=== PATIENT | female | born 1960 | race Caucasian/White ===

== ENCOUNTER 2016-06-20 19:17 | Emergency (ER) | payer OTHER ==
[~2016-06-20] VITALS: Ht 175.3 cm; Wt 57.0 kg
[~2016-06-20 19:17] MED LIST: IBUP-232 PO; NEUR600T PO; OXYC40TA9 PO; PENI250T59 PO; ROXI15TA9 PO
[2016-06-20 19:34] VITALS: BP 140/64; PULSE 65; RESP 18; TEMP 98; O2SAT 97
[2016-06-20 20:22] VITALS: BP 140/64; PULSE 65; RESP 18; TEMP 98; O2SAT 97
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
[2016-06-20 22:40] LABS: FREE T4 0.94 NG/DL (0.76-1.46)
== END 2016-06-20 22:57 | disposition home or self-care (01) ==
LOC: PHED 19:17 → PHEFT 22:57
DX: M54.2 Cervicalgia (principal); M06.9 Rheumatoid arthritis, unspecified
CPT/HCPCS: 84439; 84443; 99283

== ENCOUNTER 2016-08-22 04:31 | Emergency (ER) | payer SELFPAY ==
[~2016-08-22] VITALS: Ht 172.7 cm; Wt 55.0 kg
[2016-08-22 04:30] VITALS: O2SAT 98
[~2016-08-22 04:31] MED LIST changes: -PENI250T59 PO
[2016-08-22 04:44] VITALS: BP 145/80; PULSE 80; RESP 14; TEMP 97.8; O2SAT 98
[2016-08-22] MEDS ORDERED: SODIUM CHLORIDE 0.9% FLUSH 10 ML FLUSH IVF PRN (04:45)
[2016-08-22] MEDS ORDERED: SODIUM CHLOR 0.9% 1000 ML INJ 1,000 ML IV ONE ×3 (04:45→05:45)
[2016-08-22 04:48] VITALS: O2SAT 98
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
[2016-08-22 05:01] LABS: AUTOMATED NEUTROPHIL # 4.5 TH/MM3 (1.8-7.7); BASOPHIL % 0.3 % (0.0-2.0); EOSINOPHIL # 0.1 TH/MM3 (0-0.4); EOSINOPHIL % 1.4 % (0.0-4.0); HEMATOCRIT 37.7 % (35.0-46.0); HEMO FLAGS DIFF FINAL; LYMPHOCYTE # 1.4 TH/MM3 (1.0-4.8); MEAN CELL VOLUME 85.9 FL (80.0-100.0); MEAN CORPUSCULAR HEMOGLOBIN 28.6 PG (27.0-34.0); MEAN CORPUSCULAR HGB CONC 33.3 % (32.0-36.0); MONO % 3.1 % (0.0-8.0); NEUT % 72.2 % (16.0-70.0); PLATELET COUNT 170 TH/MM3 (150-450); RED BLOOD COUNT 4.39 MIL/MM3 (4.00-5.30); RED CELL DISTRIBUTION WIDTH 14.4 % (11.6-17.2); WHITE BLOOD COUNT 6.3 TH/MM3 (4.0-11.0)
[2016-08-22 05:13] LABS: APTT (PATIENT) 20.6 SEC (24.3-30.1); PROTHROMBIN TIME - PATIENT 11.1 SEC (9.8-11.6)
[2016-08-22 05:20] LABS: ALT (GPT) 81 U/L (10-53); ANION GAP 15 MEQ/L (5-15); AST (GOT) 133 U/L (15-37); BICARBONATE 20.3 MEQ/L (21.0-32.0); BLOOD UREA NITROGEN 21 MG/DL (7-18); CHLORIDE 103 MEQ/L (98-107); GLOMERULAR FILTRATION RATE 37 ML/MIN (>89); SODIUM (NA) 138 MEQ/L (136-145)
[2016-08-22 05:22] LABS: ACETAMINOPHEN LESS THAN 2.0 MCG/ML (10.0-30.0); ALKALINE PHOSPHATASE 93 U/L (45-117); TOTAL BILIRUBIN ADULT 0.2 MG/DL (0.2-1.0)
[2016-08-22 05:59] VITALS: BP 126/75; PULSE 79; RESP 18; O2SAT 100
--- NOTE | 2016-08-22 06:19 | RADRPT ---
EXAM DATE/TIME: 08/22/2016 05:07 [facility] COMPARISON: No previous studies available for comparison. INDICATIONS : Overdose. Shortness of breath. MEDICAL HISTORY : None. SURGICAL HISTORY : None. ENCOUNTER: Initial ACUITY: 1 day PAIN SCORE: 0/10 LOCATION: Bilateral chest FINDINGS: A single view of the chest demonstrates the lungs to be symmetrically aerated without evidence of mas s, infiltrate or effusion. The cardiomediastinal contours are unremarkable. Osseous structures are intact. CONCLUSION: No acute disease. Troy Cardoso MD on August 22, 2016 at 6:18 Board Certified Radiologist. This report was verified electronically.
[2016-08-22 07:19] VITALS: BP 111/75; PULSE 84; RESP 20; O2SAT 100
--- NOTE | 2016-08-22 09:20 | EKG ---
Date Performed: 08/22/2016 Time Performed: 04:37:28 PTAGE: 55 years EKG: Sinus rhythm NORMAL ECG NO PREVIOUS TRACING DOCTOR: Jamir Arana Interpretating Date/Time 08/22/2016 09:18:28
== END 2016-08-22 07:31 | disposition home or self-care (01) ==
LOC: NEPE 04:31
DX: T40.2X1A Poisoning by other opioids, accidental (unintentional), initial encounter (principal); M54.2 Cervicalgia; G89.29 Other chronic pain; X58.XXXA Exposure to other specified factors, initial encounter; Y92.9 Unspecified place or not applicable; M06.9 Rheumatoid arthritis, unspecified
CPT/HCPCS: 71010; 80053; 80307; 85025; 85610; 85730; 93005; 96360; 96361; 99285; J7030

== ENCOUNTER 2016-11-29 13:22 | Emergency (ER) | payer OTHER ==
[~2016-11-29] VITALS: Ht 175.3 cm; Wt 54.0 kg
[2016-11-29 13:23] VITALS: BP 117/75; PULSE 67; RESP 16; TEMP 98.2; O2SAT 100
[2016-11-29] MEDS ORDERED: ANXIETY (13:48)
[2016-11-29] MEDS ORDERED: [UNRECOGNIZED DRUG - OTHER] (13:48)
--- NOTE | 2016-11-29 13:52 | PD ---
HPI Chief Complaint: Skin Problem Time Seen by Provider: 13:45 Travel History International Travel<30 days: No Contact w/Intl Traveler<30days: No Traveled to known affect area: No History of Present Illness HPI 56-year-old female presents to the emergency room requesting a note to return to work. Patient states approximately 8 weeks ago she was living in the [facility] and contracted poison oak. States she had severe outbreak on bilateral upper extremities and it was extremely itchy but she applied [id number] creams and triple antibiotic ointment to the affected areas and with time they all have healed. Patient states they caused scars but they're no longer itching. Her employer mandated a note to return to work because he is concerned that the scars are contagious. History Past Medical Histgory Hx Cancer: No Social History Alcohol Use: Yes (rare) Tobacco Use: No (quit 2000) Allergies-Medications (Allergen,Severity, Reaction): Coded Allergies: No Known Allergies (Verified , 11/29/16) Reported Meds & Prescriptions Reported Meds & Active Scripts Active Reported Neurontin (Gabapentin) 600 Mg Tab 600 Mg PO TID Oxycontin (Oxycodone HCl) 40 Mg Tab 40 Mg PO Q8HR Ibuprofen 600 Mg Tab 600 Mg PO Q6H PRN Roxicodone (Oxycodone HCl) 15 Mg Tab 15 Mg PO Q8H PRN Review of Systems Except as stated in HPI: all other systems reviewed are Neg Physical Exam Narrative GENERAL: Well-nourished, well-developed female in no acute distress. Afebrile. Ambulatory. SKIN: Focused skin assessment warm/dry. Multiple hypertrophic scars on bilateral volar wrists without excoriations. No evidence of infection. HEAD: Normocephalic. EYES: No scleral icterus. No injection or drainage. NECK: Supple, trachea midline. No JVD or lymphadenopathy. CARDIOVASCULAR: Regular rate and rhythm without murmurs, gallops, or rubs. RESPIRATORY: Breath sounds equal bilaterally. No accessory muscle use. Data Data Last Documented VS Vital Signs Date Time Temp Pulse Resp B/P Pulse Ox O2 Delivery O2 Flow Rate FiO2 11/29/16 13:23 98.2 67 16 117/75 100 MDM Medical Screen Exam Complete: Yes Emergency Medical Condition: No Differential Diagnosis Work note, keloid scars, poison oak Narrative Course 56-year-old female presents to the emergency room requesting to return to work after jolie poison oak 8 weeks ago. Patient states her symptoms and essentially healed other than scarring. Physical exam reveals hypertrophic scars of bilateral volar wrists in the typical presentation of poison oak. No evidence of infection. Patient was told to follow-up with her primary care physician, Dr. Mcnulty, for work note. Return for worsening symptoms. She understands and agrees to plan. There are no urgent or emergent medical conditions at this time. A medical screening exam was performed: At the time of evaluation the presenting medical condition was determined not to be of an emergent nature. The patient was given the option of receiving additional care, but declined. Patient was given options for additional community resources from which to obtain care. The Patient Has Been advised to seek medical attention for their presenting complaint. The patient has been advised to return to the ER at any time if an emergent condition develops. Primary Impression: Encounter for medical screening examination Disposition: 01 DISCHARGE HOME Condition: Stable Beryl Robertson Nov 29, 2016 13:52
== END 2016-11-29 13:58 | disposition left against medical advice (07) ==
LOC: PHED 13:22
DX: Z02.79 Encounter for issue of other medical certificate (principal)
CPT/HCPCS: 99281

== ENCOUNTER 2017-01-29 17:03 | Emergency (ER) | payer OTHER ==
[~2017-01-29 17:03] MED LIST changes: +ANXIETY; -OXYC40TA9 PO; -ROXI15TA9 PO; +[UNRECOGNIZED DRUG - OTHER]
[2017-01-29 17:05] VITALS: BP 173/63; PULSE 67; RESP 15; TEMP 97.7; O2SAT 99
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
[2017-01-29] MEDS ORDERED: traMADol HCL 50 MG TAB PO ONE (18:00)
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
[2017-01-29] MEDS ORDERED: IBUP800T23 PO (19:00)
== END 2017-01-29 19:33 | disposition home or self-care (01) ==
LOC: NEPK 17:03
DX: S52.124A Nondisplaced fracture of head of right radius, initial encounter for closed fracture (principal); F41.9 Anxiety disorder, unspecified; F43.10 Post-traumatic stress disorder, unspecified; V18.4XXA Pedal cycle driver injured in noncollision transport accident in traffic accident, initial encounter; Z79.1 Long term (current) use of non-steroidal anti-inflammatories (NSAID)
CPT/HCPCS: 29105; 73080